=== PATIENT | female | born 1990 ===

== ENCOUNTER 2024-11-23 15:51 | Emergency (ER) | payer BC, SELFPAY ==
[2024-11-23] VITALS (12 sets, daily range): BP systolic 104; BP diastolic 62; PULSE 64–85; RESP 16; TEMP 37.2; O2SAT 98–100; BMI 19.5
--- OUTSIDE RECORDS SUMMARY | 2024-11-23 15:53 | XMS_ITS | Clinical Summary ---
Author Organization [facility] Address [address] [place] [address] Care Team Providers Care Compliance Vice President Name Role Phone Unavailable Primary Care Provider Unavailabl e Source Comments PLEASE NOTE, if this patient is a minor, it may be UNLAWFUL to discuss sensitive information that is contained in these records (such as FAMILY PLANNING, MENTAL HEALTH or SUBSTANCE ABUSE) with the minor patient's parent or other person without the patient's specific authorization.[facility] Allergies Active Allergy Reactions Criticality Noted Date Comments Paroxetine Hcl Anxiety,Other (See Comments) anxiety Medications No known medications Active Problems No known active problems Social History Tobacco Use Types Packs/Day Years Used Date Smoking Tobacco: Never Assessed Social Connections Answer Date Recorded Social Connections and Isolation 0 05/23/2021 Financial Resource Strain Answer Date R ecorded Financial Resource Strain 0 2020 Stress Answer Date Recorded Stress 0 05/23/2021 Physical Activity Answer Date Recorded Physical Activity 0 05/23/2021 Food Insecurity Answer Date Recorded Food 0 05/23/2021 Transportation Needs Answer Date Record ed Transportation 0 05/23/2021 Housing Stability Answer Date Recorded Housing 0 05/23/2021 Safety and Environment Answer Date Edenilson rded Safety 0 05/23/2021 Utilities Answer Date Recorded Utilities 0 05/23/2021 Employment Answer Date Recorded Employment 0 05/23/2021 Comments Unknown Sex and Gender Information Value Date Recorded Sex Assigned at Female 05/19/2021 11:04 AM PDT Legal Sex Female 11:02 AM PDT Gender Identity Female 05/19/2021 11:04 AM PDT Sexual Orientation Straight 05/19/2021 11 :04 AM PDT Last Filed Vital Signs Vital Sign Reading Time Taken Comments Blood Pressure 118/72 05/23/2021 11:28 AM CDT Pulse 65 05/23/2021 11:28 AM CDT Temperature - - Respiratory Rate - - Oxygen Saturation - - Inhaled Oxygen Concentration - - Weight - - Height - - Body Mass Index - - Plan of Treatment Not on file Insurance [employer] [place] [employer]
--- OUTSIDE RECORDS SUMMARY | 2024-11-23 15:53 | XMS_ITS | Clinical Summary ---
Author Organization [facility] Address [place], [place] [address] Care Team Providers Care Referral Agent Name Role Phone Service, Odalis Beard MD Unavailable [phone] Jessica Jose Unavailable Jameson Allen DO Primary Care Provider [phone] Allergies Active Allergy Reactions Criticality Noted Date Comments Paroxetine Hcl Anxiety 10/12/2016 Medications albuterol HFA 90 mcg/actuation inhaler Inhale 2 Puffs by mouth 4 times daily if needed. 0 7 Active cetirizine (ZYRTEC) 10 mg tablet 4 Active levothyroxine (SYNTHROID) 50 mcg tabletIndication s:Hypothyroidism , unspecified type Take 0.5 Tablets (25 mcg) by mouth before breakfast. 5 Active Levothyroxine (Tirosint) 25 mcg capIndications:H ypothyroidism, unspecified type Take 25 mcg by mouth once daily. 90 Capsule 3 5 Active ferrous sulfate, 65 mg elemental, tablet Take 325 mg by mouth. 11/13/19 25 Discontinu ed(*Patien t states no longer taking) ibuprofen (Motrin IB) 200 mg tabletIndication s:S/P section Take 1-3 Tablets (200-600 mg) by mouth every 6 hours if needed (for uterine cramping). Take with food. 100 Tablet 2 11/13/19 25 Discontinu ed(*Patien t states no longer taking) levothyroxine (SYNTHROID) 50 mcg tablet Take 50 mcg by mouth. 3 11/13/19 Discontinu ed(*Medica tion adjustment ) thyroid, pork, (ARMOUR THYROID) 15 mg tablet Take 15 mg by mouth. 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 Hypothyroidism 04/04/2023 Other specified abnormal immunological findings in serum 03/13/2023 Vitamin D deficiency 03/13/2023 S/P section 05/01/2022 40 weeks gestation of 05/01/2022 Diastasis recti 02/03/2022 Overview (11/13/2024): Reviewed every mother and recore Chronic post-traumatic stress disorder (PTSD) Overview (11/13/2024): Followed by psychologist No mood medications Ganglion cyst 08/18/2021 Personality disorder 02/04/2021 Anxiety 08/28/2017 Anxiety and depression 05/08/2012 Encounters Date Type Department Care Team Description 11/21/2024 Telephone [facility] [address] [place] [address] Jameson Allen DO Medication Management (Levothyroxine (Tirosint) 25 mcg cap) 11/18/2024 9:00 AM PASSENGER SERVICE REPRESENTATIVE Ancillary Procedure [facility] [address] [place] [address] [address] [place] [address] 11/18/2024 Telephone [facility] [address] [place] [address] Jameson Allen DO Questions (Questions about last visit) 11/18/2024 Travel 11/13/2024 2:30 PM PASSENGER SERVICE REPRESENTATIVE Office Visit [facility] [address] [place] [address] Jameson Allen DO Consult (Stomach pain and inflamed x 2 weeks /); Thyroid Problem (Hypothyroid ); Medication Management (Levothyroxine side effects nausea, weight loss and stomach pain ) 11/13/2024 Travel from Last 3 Months Immunizations Name Administration Dates Next Due Human Papilloma Virus Vaccine 07/21/2008, 008,12/19/2007 Tdap 12/03/2013 Family History Medical History Relation Name Comments Diabetes Father Hypertension Father Psychiatric illness Father depressi on Hypertension Mother Psychiatric illness Mother depressi on/anxiety Heart Disease Other long QT Relation Name Status Comments Father Mother Other Social History Tobacco Use Types Packs/Day Years Used Date Smoking Tobacco: Former Cigarettes 0.5 6 1 11/22/2003 - 09/21/2010 Smokeless Tobacco: Never Tobacco Cessation:Counseling Given: Yes Alcohol Use Standard Drinks/Week Comments No 0 (1 standard drink = 0.6 oz pur e alcohol) PHQ-2 Answer Date Recorded PHQ-2 TOTAL SCORE 2 11/13/2024 Social Connections Answer Date Recorded Do you often feel lonely or isolated from those around you? 4 11/13/2024 Financial Resource Strain Answer Date R ecorded Difficulty of Paying Living Expenses 3 11/13/2024 Difficulty of Paying Living Expenses Not on file 11/13/2024 Food Insecurity Answer Date Recorded Do you worry your food will run out before you are able to buy more? 1 11/13/2024 Transportation Needs Answer Date Record ed Does lack of transportation keep you from medica l appointments? 1 11/13/2024 Does lack of transportation keep you from work, meetings or getting things that you need? 1 11/13/2024 Housing Stability Answer Date Recorded What is your housing situation today? 1 11/13/2024 Utilities Answer Date Recorded Do you have trouble paying f or utilities (for example, heat, electricity, water, phone)? 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 Not on file Not on file Not on file Obstetrics History Para Term AB IAB SAB Ectopic Multiple Livin g Live Births 7 5 5 1 1 1 6 6 Date Outcome GA Total Labor Labor/2nd/3rd Weight Sex Type Anes PTL Sherrie A1 A5 Name Clin 2010 Term 41w 0d F Vag Livin g Complications:None 2010 SAB 7w0 d SPONTA NEOUS Complications:None 2011 Term 39w 0d M Vag N Livin g Complications:None 2012 Term 39w 0d F Vag N Livin g Complications:None 2015 Term 37w 0d F Vag N Livin g Complications:None 2015 Term F Vag-Br eech N Livin g Complications:None 2021 Term 40w 0d 0h 04m 0h 04m 3.33 kg (7 lb 5.5 oz) M C-Sect ion Epidur al Livin g 7 9 ERMA SANON Justi n Carly le, MD Complications:Cord prolapse Delivery Location:Hospital ( [facility] Last Filed Vital Signs Vital Sign Reading Time Taken Comments Blood Pressure 116/76 11/13/2024 2:57 PM PASSENGER SERVICE REPRESENTATIVE Pulse 66 11/13/2024 2:57 PM PASSENGER SERVICE REPRESENTATIVE Temperature 37.2 C (98.9 F) 11/13/2024 2:57 PM PASSENGER SERVICE REPRESENTATIVE Respiratory Rate 18 05/01/2022 7:58 AM CDT Oxygen Saturation 97% 11/13/2024 2:57 PM PASSENGER SERVICE REPRESENTATIVE Inhaled Oxygen Concentration - - Weight 46.7 kg (103 lb) 11/13/2024 2:57 PM PASSENGER SERVICE REPRESENTATIVE Height 152.4 cm (5') 04/28/2022 8:55 AM CDT Body Mass Index 20.12 04/28/2022 8:55 AM CDT Plan of Treatment Upcoming Encounters Date Type Department Care Team (Late st Contact Info) Description 11/27/2024 2:05 PM PASSENGER SERVICE REPRESENTATIVE Office Visit [facility] [address] [place] [address] Jameson Allen DO [address] [place] [address] 12/02/2024 10:00 AM PASSENGER SERVICE REPRESENTATIVE Appointment [facility] [address] [place] [address] 05/12/2025 1:00 PM CDT Telemedicine [facility] [address] [place] [address] Gwen'John Funes MD [address] [place] [address] Health Maintenance Due Date Last Done Comments Hepatitis C screening for age 18-79 2008 BMI (ht and wt on same day) for age 18+ 10/12/2017 10/12/2016 Tetanus booster 12/03/2023 12/03/2013 COVID-19 vaccine series ( season) 2024 Influenza for age 9-49 06/22/2024 Depression screening for age 12+ 11/13/2025 11/13/2024, 10/12/2016 Pap test for age 21-65 09/02/2026 (Verified in Care Everywhere or Patient Record) Tdap Completed 12/03/2013 HIV for age 15-65 Completed 09/21/2021, 10/23/2016 Pneumococcal series for age 6-49 Aged Out No longer eligible based on patient's age to complete this topic Procedures Procedure Name Priority Date/Time Associated Diagnosis Comments US ABDOMEN LIMITED RUQ Routine 9:30 AM PASSENGER SERVICE REPRESENTATIVE Abdominal pain, RUQ (right upper quadrant) TSH WITH REFLEX Routine 11/13/2024 4:33 PM PASSENGER SERVICE REPRESENTATIVE Hypothyroidism, unspecified type CALCIUM IONIZED OUTPT DRAW ONLY Routine 11/13/2024 4:33 PM PASSENGER SERVICE REPRESENTATIVE Hypercalcemia VITAMIN D 25 (DEFICIENCY) Routine 11/13/2024 4:33 PM PASSENGER SERVICE REPRESENTATIVE Hypercalcemia PTH,INTACT Routine 11/13/2024 4:33 PM PASSENGER SERVICE REPRESENTATIVE Hypercalcemia SELENIUM SERUM/PLASMA Routine 11/13/2024 4:33 PM PASSENGER SERVICE REPRESENTATIVE Hypothyroidism, unspecified type THYROPEROXIDASE ANTIBODY Routine 11/13/2024 4:33 PM PASSENGER SERVICE REPRESENTATIVE Hypothyroidism, unspecified type T3,TOTAL Routine 11/13/2024 4:33 PM PASSENGER SERVICE REPRESENTATIVE Hypothyroidism, unspecified type T4,FREE Add On 11/13/2024 12:00 AM PASSENGER SERVICE REPRESENTATIVE Hypothyroidism, unspecified type HIV EXTERNAL Routine 09/21/2021 from Last 3 Months or Most Recently Relevant to Health Maintenance Results * US ABDOMEN LIMITED RUQ (11/18/2024 9:30 AM PASSENGER SERVICE REPRESENTATIVE) Anatomical Region Laterality Modality Abdomen, LIVER Ultrasound 11/18/2024 11:4 7 AM PASSENGER SERVICE REPRESENTATIVE Narrative 11/18/2024 11:47 AM PASSENGER SERVICE REPRESENTATIVE For Patients: As a result of the Cures Act, medical imaging exams and procedure reports are released immediately into your electronic medical record. You may view this report before your referring provider. If you have questions, please contact your health care provider. Indication: Right upper quadrant pain Technique: Right upper quadrant ultrasound utilizing grayscale and color flow techniques Comparison: None Findings: Pancreas: Partially visualized portions are grossly unremarkable. Abdominal aorta: Visualized portions are normal in caliber. IVC: Patent by color flow. Liver: Measures 15 centimeters in length and demonstrates normal echogenicity. No cysts or masses. Gallbladder: Normal. Common bile duct: 4 millimeters. Right kidney: 11 centimeters in length normal cortical echogenicity and cortical thickness. No stones or hydronephrosis. Free fluid: None. Impression: Normal study. Dictated by Jason Cavanaugh MD @ 11/18/2024 11:47:23 AM (Electronically Signed) Procedure Note Jason Cavanaugh MD - 11/18/2024 For Patients: As a result of the Cures Act, medical imagingexams and procedure reports are released immediately into your electronicmedical record. You may view this report before your referring provider.If you have questions, please contact your health care provider. Indication: Right upper quadrant pain Technique: Right upper quadrant ultrasound utilizing grayscale and color flowtechniques Comparison: None Findings: Pancreas: Partially visualized portions are grossly unremarkable. Abdominal aorta: Visualized portions are normal in caliber. IVC: Patent bycolor flow. Liver: Measures 15 centimeters in length and demonstrates normalechogenicity. No cysts or masses. Gallbladder: Normal. Common bile duct: 4 millimeters. Right kidney: 11 centimeters in length normal cortical echogenicity andcortical thickness. No stones or hydronephrosis. Free fluid: None. Impression: Normal study. Dictated by Jason Cavanaugh MD @ 11/18/2024 11:47:23 AM (Electronically Signed) [facility] US Final Result * SELENIUM SERUM/PLASMA (11/13/2024 4:33 PM PASSENGER SERVICE REPRESENTATIVE) SELENIUM TNP mcg/L [facility] Comment: TEST NOT PERFORMED. We were not able to obtain the required specimen for the order. If testing is still indicated, please re-order the test and instruct your patient to return to our Patient Service Center for re-collection. Blood BLOOD SPECIMEN / Unknown 11/13/2024 4:33 PM PASSENGER SERVICE REPRESENTATIVE 11/13/2024 4:34 PM PASSENGER SERVICE REPRESENTATIVE [facility] DO SEND OUTS Final Result [facility] [address] [facility] [address] [place] [address], [facility] [address] [address], [address] [place] [address] * TSH WITH REFLEX (11/13/2024 4:33 PM PASSENGER SERVICE REPRESENTATIVE) TSH W/REFLEX TO FT4 3.28 mIU/L [facility] [employer] amritza Keita Comment: Reference Range > or = 20 Years 0.40-4.50 Ranges First trimester 0.26-2.66 Second trimester 0.55-2.73 Third trimester 0.43-2.91 Blood BLOOD SPECIMEN / Unknown 11/13/2024 4:33 PM PASSENGER SERVICE REPRESENTATIVE 11/13/2024 4:34 PM PASSENGER SERVICE REPRESENTATIVE [facility] DO CHEMISTRY Final Result [facility] [address] [place] [address], [facility] [address] [place] [address] * CALCIUM IONIZED OUTPT DRAW ONLY (11/13/2024 4:33 PM PASSENGER SERVICE REPRESENTATIVE) CALCIUM, IONIZED 5.1 4.7 - 5.5 mg/dL [employer]Kong maritza Keita Blood BLOOD SPECIMEN / Unknown 11/13/2024 4:33 PM PASSENGER SERVICE REPRESENTATIVE 11/13/2024 4:34 PM PASSENGER SERVICE REPRESENTATIVE [facility] DO CHEMISTRY Final Result Performing Organization Address [facility]/ZIP Co de Phone Number [facility] [address] [address], [facility] [employer] [employer] [address] [place] [phone] * VITAMIN D 25 (DEFICIENCY) (11/13/2024 4:33 PM PASSENGER SERVICE REPRESENTATIVE) Pathologist [facility] VITAMIN D,25-OH,TOTAL,IA 35 30 - 100 ng/mL [employer]Nae garcia Bossman Comment: Vitamin D Status 25-OH Vitamin D: Deficiency: <20 ng/mL Insufficiency: 20 - 29 ng/mL Optimal: > or = 30 ng/mL For 25-OH Vitamin D testing on patients on D2-supplementation and patients for whom quantitation of D2 and D3 fractions is required, the Quest[facility]ure[facility](TM) 25-OH VIT D, (D2,D3), LC/MS/MS is recommended: order code [id number] (patients >2yrs). See Note 1 Note 1 For additional information, please refer to http://education.Trip4real/faq/DWV108 (This link is being provided for informational/ educational purposes only.) Blood BLOOD SPECIMEN / Unknown 11/13/2024 4:33 PM PASSENGER SERVICE REPRESENTATIVE 11/13/2024 4:34 PM PASSENGER SERVICE REPRESENTATIVE Jameson Allen DO SEND OUTS Final Result Performing Organization Address City/[facility]/ZIP Co de Phone Number [facility] [address] [place] [address], [place] [phone] [facility] [address] [address] * (ABNORMAL) THYROPEROXIDASE ANTIBODY (11/13/2024 4:33 PM PASSENGER SERVICE REPRESENTATIVE) Pathologist [facility] THYROID PEROXIDASE ANTIBODIES 161(H) <9 IU/mL [facility] Blood BLOOD SPECIMEN / Unknown 11/13/2024 4:33 PM PASSENGER SERVICE REPRESENTATIVE 11/13/2024 4:34 PM PASSENGER SERVICE REPRESENTATIVE Jameson Allen DO SEND OUTS Final Result [facility] [address] [place] [address], [place] [phone] [facility] [address] [place] [address] * T3,TOTAL (11/13/2024 4:33 PM PASSENGER SERVICE REPRESENTATIVE) Pathologist [facility] T3, TOTAL 82 76 - 181 ng/dL [employer]Ha Keita Blood BLOOD SPECIMEN / Unknown 11/13/2024 4:33 PM PASSENGER SERVICE REPRESENTATIVE 11/13/2024 4:34 PM PASSENGER SERVICE REPRESENTATIVE Jameson Allen DO CHEMISTRY Final Result Performing Organization Address City/[facility]/ZIP Co de Phone Number [facility] [employer] [facility] [address] [place] [address], [place] [phone] [facility] [address] [place] [address] * PTH,INTACT (11/13/2024 4:33 PM PASSENGER SERVICE REPRESENTATIVE) Pathologist [facility] PARATHYROID HORMONE, INTACT 46 16 - 77 pg/mL [employer]Devendra Keita Comment: Interpretive Guide Intact PTH Calcium ------- Normal Parathyroid Normal Normal Hypoparathyroidism Low or Low Normal Low Hyperparathyroidism Primary Normal or High High Secondary High Normal or Low Tertiary High High Non-Parathyroid Hypercalcemia Low or Low Normal High CALCIUM 9.8 8.6 - 10.2 mg/dL [facility] Blood BLOOD SPECIMEN / Unknown 11/13/2024 4:33 PM PASSENGER SERVICE REPRESENTATIVE 11/13/2024 4:34 PM PASSENGER SERVICE REPRESENTATIVE us Adei Phillipqra DO SEND OUTS Final Result [facility] [address] [place] [address], [place] [phone] [facility] [address] [place] [address] * T4,FREE (11/13/2024 12:00 AM PASSENGER SERVICE REPRESENTATIVE) T4, FREE 1.4 0.8 - 1.8 ng/dL [facility] Blood BLOOD SPECIMEN / Unknown 11/13/2024 11/14/2024 11:30 AM PASSENGER SERVICE REPRESENTATIVE us Adei Tiffany DO CHEMISTRY Final Result Performing Organization Address [facility]/ZIP Co de Phone Number [facility] [address] [place] [address], [place] [phone] [facility] [address] [place] [address] * HIV EXTERNAL (09/21/2021) EXTERNAL HIV Negative [facility] Blood BLOOD SPECIMEN / Unknown us Haresh Piper MD LABORATORY Final Re sult [facility] [address] [place] [address], [place] from Last 3 Months or Most Recently Relevant to Health Maintenance Insurance [employer] [place] Advance Directives * Full Code (Latest Code Status on File) Date Activated Date Inactivated Comments 04/28/2022 9:01 AM 05/01/2022 2:43 PM Question Answer Comments Code Status Discussion: Reviewed Preferences Care Teams Referral Agent Relationship Specialty Start Date End Date Jameson Allen DO [address] [place] [address] PCP - General Family Practice 11/21/24 Service, Odalis Beard MD [address] [address] Psychiatry 05/27/12 Jessica Jose [address] [place], [place] [id number] Health Related Social Needs Care Guide 11/20/24
--- NOTE | 2024-11-23 16:18 | ED.ARRPALP ---
HPI - Arrhythmia/Palpitations General Chief Complaint: Arrhythmia/Palpitations Stated Complaint: Heart arrhythmia Time Seen by Provider: 11/23/24 15:53 History of Present Illness HPI narrative: This 34-year-old female comes in reporting palpitations and tingling sensation. She states that she has lots of anxiety. She was seen a couple days ago in a different emergency department with similar complaints. She does not report any chest pain, lightheadedness, shortness of breath, nausea, vomiting, or diaphoresis. She does not have any exercise intolerance. Related Data Home Medications ?Medication ?Instructions ?Recorded ?Confirmed albuterol sulfate 90 mcg/actuation inhalation 11/23/24 aerosol inhaler (Ventolin HFA) levothyroxine 50 mcg tablet 25 mcg DAILY 11/23/24 Allergies Allergy/AdvReac Type Severity Reaction Status Date / Time paroxetine (From Paxil) AdvReac Intermediate Anxiety Verified 11/23/24 16:08 Review of Systems Status of ROS: Reports: 10 or more systems reviewed and unremarkable except as noted in History and below Narrative: Constitutional: No fevers, no weight gain or loss. Eyes: No discharge. No vision changes. HENT: No congestion, no sore throat, no ear pain. Cardiovascular: No chest pain. She has palpitations. Respiratory: No shortness of breath, no wheezes, no cough. Gastrointestinal: No abdominal pain, no vomiting, no diarrhea. Genitourinary: No dysuria, no hematuria. Musculoskeletal: Normal range of motion. Skin: No rashes, no pruritis. Neurological: No dizziness, weakness, sensory change, speech change. Endo/Heme/Allergies: No bruising or bleeding. No polydipsia. Pysch: no suicidality, no insomnia. She reports lots of anxiety. All other systems reviewed and are negative. [facility] Social History Smoking Status: Never smoker How often do you have a drink containing alcohol: never AUDIT-C Alcohol total score: 0 Non-prescribed substance use: denies use Exam Narrative: Exam Narrative: Constitutional: Well-developed, well-nourished, no acute distress. HEENT: Normocephalic, atraumatic. Neck: Normal range of motion. Nontender. Supple. Heart: Regular. No murmurs. Normal rate. Intact distal pulses. Lungs: Clear to auscultation. No chest discomfort. No wheezes, rhonchi, or rales. Abdomen: Normal bowel sounds. Nontender. No rebound tenderness. Genitalia: Deferred. Back: No midline tenderness. Normal range of motion. Extremities: Normal range of motion. No injury. Skin: Intact. No rash. Warm. No erythema or pallor. Neurologic: No altered sensation. No weakness. Alert and oriented. Psychiatric: No suicidality. No insomnia. She appears anxious about her health. Nursing notes and vitals signs are reviewed. Const: Vital Signs, click to edit/add: Vital Signs - 24 hr 11/23/24 16:11 11/23/24 16:14 11/23/24 16:15 Temperature 98.9 F Pulse Rate 85 78 Pulse Rate [Pulse Oximeter] 75 Respiratory Rate 16 Blood Pressure Blood Pressure [Ri ght Upper Arm] 104/62 Pulse Oximetry 99 100 100 Oxygen Delivery Me thod Room Air 11/23/24 16:21 11/23/24 16:30 11/23/24 16:45 Temperature Pulse Rate 75 84 65 Pulse Rate [Pulse Oximeter] Respiratory Rate Blood Pressure 104/62 Blood Pressure [Ri ght Upper Arm] Pulse Oximetry 99 100 98 Oxygen Delivery Me thod 11/23/24 17:00 11/23/24 17:15 11/23/24 18:13 Temperature Pulse Rate 65 64 68 Pulse Rate [Pulse Oximeter] Respiratory Rate Blood Pressure Blood Pressure [Ri ght Upper Arm] Pulse Oximetry 100 100 100 Oxygen Delivery Me thod 11/23/24 18:15 11/23/24 18:30 Temperature Pulse Rate 68 79 Pulse Rate [Pulse Oximeter] Respiratory Rate Blood Pressure Blood Pressure [Ri ght Upper Arm] Pulse Oximetry 100 100 Oxygen Delivery Me thod Course Vital Signs Vital signs: Initial Vital Signs Temperature 98.9 F 11/23/24 16:11 Temperature Source Temporal Artery Scan 11/23/24 16:11 Pulse Rate 75 11/23/24 16:11 Respiratory Rate 16 11/23/24 16:11 Blood Pressure 104/62 11/23/24 16:11 Blood Pressure Mean 76 11/23/24 16:11 Blood Pressure Position High-Fowlers 11/23/24 16:11 Pulse Oximetry 99 11/23/24 16:11 Oxygen Delivery Method Room Air 11/23/24 16:11 Vital Signs Temperature 98.9 F 11/23/24 16:11 Pulse Rate 75 11/23/24 16:11 Respiratory Rate 16 11/23/24 16:11 Blood Pressure 104/62 11/23/24 16:11 Pulse Oximetry 99 11/23/24 16:11 Oxygen Delivery Method Room Air 11/23/24 16:11 Temperature 98.9 F 11/23/24 16:11 Pulse Rate 79 11/23/24 18:30 Respiratory Rate 16 11/23/24 16:11 Blood Pressure 104/62 11/23/24 16:21 Pulse Oximetry 100 11/23/24 18:30 Oxygen Delivery Method Room Air 11/23/24 16:11 MDM - Arrhythmia/Palpitations MDM Narrative Medical decision making narrative: This patient is concerned about palpitations and has other questions about potassium and selenium levels as she has a fair amount of anxiety about her health. EKG shows normal sinus rhythm. While she was on the heart monitor also there were no premature beats. Her palpitations do sound like premature ventricular contractions. I did use bedside ultrasound to look at her heart and this was reassuring to her. Is also labs are acquired and these returned with normal results. She got very concerned that her potassium is very slightly low at 3.4. She said she had a previous reading a few days ago that was similar to this. I did administer 1 tablet of 20 mEq of potassium chloride. I gave reassurance is about all these lab results. She is okay to be discharged home. I did discuss anxiety treatments and she states she has taken various medicines in the past to attempt to help with this but she did not tolerate the adverse effects. Lab Data Labs: Lab Results 11/23/24 11/23/24 Range/Units 16:39 16:59 WBC 5.69 (4.50-11.00) K/uL RBC 4.11 (4.00-5.20) m/uL Hgb 12.0 (12.0-16.0) gm/dL Hct 36.0 (33.0-51.0) % MCV 88 (80-100) fL MCH 29 (26-34) pg MCHC 33 (32-36) gm/dL RDW Coeff of Wellington 13.3 (11.5-15.5) % Plt Count 168 (140-440) K/uL Neut % (Auto) 44.6 (42.0-72.0) % Lymph % (Auto) 41.8 (20-44) % Taney % (Auto) 6.2 (0.0-11.0) % Eos % (Auto) 7.0 (0.0-7.0) % Baso % (Auto) 0.4 (0.0-3.0) % Neut # (Auto) 2.54 (1.7-7.0) K/uL Lymph # (Auto) 2.38 (0.90-2.90) K/uL Taney # (Auto) 0.40 (0.00-0.90) K/UL Eos # (Auto) 0.40 (0.00-0.50) K/uL Baso # (Auto) 0.02 (0.00-0.30) K/uL Abs Immat Gran (auto) 0.00 (0.00-0.30) K/uL Imm/Tot Granulo (auto) 0.0 % Sodium 138 (135-149) mmol/L Potassium 3.4 L (3.6-5.1) mmol/L Chloride 105 (96-114) mmol/L Carbon Dioxide 24 (20-32) mmol/L Anion Gap 9 (7-15) mEq/L BUN 8 (5-24) mg/dL Creatinine 0.5 (0.5-1.5) mg/dL Estimated Creat Clear 113.52 Estimated GFR 126 ml/min Glucose 73 (60-115) mg/dL Calcium 9.6 (8.4-10.6) mg/dL Magnesium 1.9 (1.5-2.6) mg/dL POC Troponin I 0.00 L (0.01-0.04) ng/ml ECG Data Attestation: I personally reviewed and interpreted this ECG as follows: Interpretation: Normal sinus rhythm. Rate is 77 beats per minute. There are no ST or T-wave abnormalities. Discharge Plan Discharge Clinical Impression: Anxiety Patient Disposition: Home, Self-Care Condition: Stable Additional Instructions: Continue current plans. Follow up with primary MD for ongoing management and treatment. Return if worsening. Prescriptions: No Action levothyroxine 50 mcg tablet 25 mcg DAILY albuterol sulfate [Ventolin HFA] 90 mcg/actuation HFA aerosol inhaler INHALATION Patient Comments: [NO ORIGINAL SIG] Follow Up/Referrals: Provider,Not a Local [Primary Care Provider] - Stand Alone Forms: [facility] Info Instructions Procedures Ultrasound Cardiac exam #1: Anatomical areas examined: parasternal long and parasternal short Indications: other Exam type: limited transthoracic echocardiogram Impression: negative exam
[2024-11-23 17:18] LABS: Basophils Absolute Auto 0.02 K/uL (0.00-0.30); Basophils Percent Auto 0.4 % (0.0-3.0); Lymphocytes Absolute Auto 2.38 K/uL (0.90-2.90); Lymphocytes Percent Auto 41.8 % (20-44); Mean Corpuscular HGB Conc 33 gm/dL (32-36); Mean Corpuscular Hemoglobin 29 pg (26-34); Mean Corpuscular Volume 88 fL (80-100); Monocytes Percent Auto 6.2 % (0.0-11.0); Neutrophils Absolute Auto 2.54 K/uL (1.7-7.0); Neutrophils Percent Auto 44.6 % (42.0-72.0); Platelet Count* 168 K/uL (140-440); RDW Coefficient of Variation % 13.3 % (11.5-15.5); Red Blood Count 4.11 m/uL (4.00-5.20); White Blood Count* 5.69 K/uL (4.50-11.00)
[2024-11-23 17:22] LABS: Slide Review Reflex No
[2024-11-23 17:31] LABS: Chloride* 105 mmol/L (96-114); Potassium* 3.4 mmol/L (3.6-5.1); Sodium* 138 mmol/L (135-149)
[2024-11-23 17:34] LABS: Anion Gap 9 mEq/L (7-15); Blood Urea Nitrogen* 8 mg/dL (5-24); Carbon Dioxide* 24 mmol/L (20-32); Creatinine* 0.5 mg/dL (0.5-1.5); Est. Creatinine Clearance* 113.52; Estimated Glomerular Filt Rate 126 ml/min; Glucose* 73 mg/dL (60-115)
[2024-11-23 17:35] LABS: Calcium* 9.6 mg/dL (8.4-10.6); Magnesium* 1.9 mg/dL (1.5-2.6)
--- OUTSIDE RECORDS SUMMARY | 2024-11-23 18:09 | XMS_ITS | Clinical Summary ---
Author Organization [facility] Address [place], [place] [address] Care Team Providers Care Resident Care Supervisor Name Role Phone Service, Odalis Beard MD Unavailable [phone] Jessica Jose Unavailable Jameson Allen DO Primary Care Provider [phone] Allergies Active Allergy Reactions Criticality Noted Date [...] Type Department Care Team Description 11/21/2024 Telephone [facility] [address] [place] [address] Jameson Allen DO Medication Management (Levothyroxine (Tirosint) 25 mcg cap) 11/18/2024 9:00 AM DIRECT MAIL CLERK Ancillary Procedure [facility] [address] [place] [address] [address] [place] [address] 11/18/2024 Telephone [facility] [address] [place] [address] Jameson Allen DO Questions (Questions about last visit) 11/18/2024 Travel 11/13/2024 2:30 PM DIRECT MAIL CLERK Office Visit [facility] [address] [place] [address] Jameson Allen DO Consult (Stomach pain and [...] on file Legal Sex Female 6:50 AM DIRECT MAIL CLERK Gender Identity Not on file Sexual Orientation [...] le, MD Complications:Cord prolapse Delivery Location:Hospital ( [facility] Last Filed Vital Signs Vital Sign Reading Time Taken Comments Blood Pressure 116/76 11/13/2024 2:57 PM DIRECT MAIL CLERK Pulse 66 11/13/2024 2:57 PM DIRECT MAIL CLERK Temperature 37.2 C (98.9 F) 11/13/2024 2:57 PM DIRECT MAIL CLERK Respiratory Rate 18 05/01/2022 7:58 AM CDT Oxygen Saturation 97% 11/13/2024 2:57 PM DIRECT MAIL CLERK Inhaled Oxygen Concentration - - Weight 46.7 kg (103 lb) 11/13/2024 2:57 PM DIRECT MAIL CLERK Height 152.4 cm (5') 04/28/2022 8:55 AM CDT Body Mass Index 20.12 04/28/2022 8:55 AM CDT Plan of Treatment Upcoming Encounters Date Type Department Care Team (Late st Contact Info) Description 11/27/2024 2:05 PM DIRECT MAIL CLERK Office Visit [facility] [address] [place] [address] Jameson Allen DO [address] [place] [address] 12/02/2024 10:00 AM DIRECT MAIL CLERK Appointment [facility] [address] [place] [address] 05/12/2025 1:00 PM CDT Telemedicine [facility] [address] [place] [address] Gwen'John Funes MD [address] [place] [address] Health Maintenance Due Date Last Done Comments [...] US ABDOMEN LIMITED RUQ Routine 9:30 AM DIRECT MAIL CLERK Abdominal pain, RUQ (right upper quadrant) TSH WITH REFLEX Routine 11/13/2024 4:33 PM DIRECT MAIL CLERK Hypothyroidism, unspecified type CALCIUM IONIZED OUTPT DRAW ONLY Routine 11/13/2024 4:33 PM DIRECT MAIL CLERK Hypercalcemia VITAMIN D 25 (DEFICIENCY) Routine 11/13/2024 4:33 PM DIRECT MAIL CLERK Hypercalcemia PTH,INTACT Routine 11/13/2024 4:33 PM DIRECT MAIL CLERK Hypercalcemia SELENIUM SERUM/PLASMA Routine 11/13/2024 4:33 PM DIRECT MAIL CLERK Hypothyroidism, unspecified type THYROPEROXIDASE ANTIBODY Routine 11/13/2024 4:33 PM DIRECT MAIL CLERK Hypothyroidism, unspecified type T3,TOTAL Routine 11/13/2024 4:33 PM DIRECT MAIL CLERK Hypothyroidism, unspecified type T4,FREE Add On 11/13/2024 12:00 AM DIRECT MAIL CLERK Hypothyroidism, unspecified type HIV EXTERNAL Routine 09/21/2021 from Last 3 Months or Most Recently Relevant to Health Maintenance Results * US ABDOMEN LIMITED RUQ (11/18/2024 9:30 AM DIRECT MAIL CLERK) Anatomical Region Laterality Modality Abdomen, LIVER Ultrasound 11/18/2024 11:4 7 AM DIRECT MAIL CLERK Narrative 11/18/2024 11:47 AM DIRECT MAIL CLERK For Patients: As a result of the [...] MD @ 11/18/2024 11:47:23 AM (Electronically Signed) [facility] US Final Result * SELENIUM SERUM/PLASMA (11/13/2024 4:33 PM DIRECT MAIL CLERK) SELENIUM TNP mcg/L [facility] Comment: TEST NOT PERFORMED. We were not able to obtain the required specimen for the order. If testing is still indicated, please re-order the test and instruct your patient to return to our Patient Service Center for re-collection. Blood BLOOD SPECIMEN / Unknown 11/13/2024 4:33 PM DIRECT MAIL CLERK 11/13/2024 4:34 PM DIRECT MAIL CLERK [facility] DO SEND OUTS Final Result [facility] [address] [facility] [address] [place] [address], [facility] [address] [address], [address] [place] [address] * TSH WITH REFLEX (11/13/2024 4:33 PM DIRECT MAIL CLERK) TSH W/REFLEX TO FT4 3.28 mIU/L [facility] Comment: Reference Range > or = 20 Years 0.40-4.50 Ranges First trimester 0.26-2.66 Second trimester 0.55-2.73 Third trimester 0.43-2.91 Blood BLOOD SPECIMEN / Unknown 11/13/2024 4:33 PM DIRECT MAIL CLERK 11/13/2024 4:34 PM DIRECT MAIL CLERK [facility] DO CHEMISTRY Final Result [facility] [address] [place] [address], [facility] [address] [place] [address] * CALCIUM IONIZED OUTPT DRAW ONLY (11/13/2024 4:33 PM DIRECT MAIL CLERK) CALCIUM, IONIZED 5.1 4.7 - 5.5 mg/dL [facility] Keita Blood BLOOD SPECIMEN / Unknown 11/13/2024 4:33 PM DIRECT MAIL CLERK 11/13/2024 4:34 PM DIRECT MAIL CLERK [facility] Ri[facility] DO CHEMISTRY Final Result Performing Organization Address [facility]/ZIP Co de Phone Number [facility] [address] [address], [facility] [address] [place] [phone] * VITAMIN D 25 (DEFICIENCY) (11/13/2024 4:33 PM DIRECT MAIL CLERK) Pathologist [facility] VITAMIN D,25-OH,TOTAL,IA 35 30 - 100 ng/mL [facility] Bossman Comment: Vitamin D Status 25-OH Vitamin D: Deficiency: <20 ng/mL Insufficiency: 20 - 29 ng/mL Optimal: > or = 30 ng/mL For 25-OH Vitamin D testing on patients on D2-supplementation and patients for whom quantitation of D2 and D3 fractions is required, the QuestAssureD(TM) 25-OH VIT D, (D2,D3), LC/MS/MS is recommended: order code [id number] (patients >2yrs). See Note 1 Note 1 For additional information, please refer to http://education.GENWI/faq/YDG615 (This link is being provided for informational/ educational purposes only.) Blood BLOOD SPECIMEN / Unknown 11/13/2024 4:33 PM DIRECT MAIL CLERK 11/13/2024 4:34 PM DIRECT MAIL CLERK Jameson Allen DO SEND OUTS Final Result Performing Organization Address City/[facility]/ZIP Co de Phone Number [facility] [address] [place] [address], [place] [phone] [facility] [address] [address] * (ABNORMAL) THYROPEROXIDASE ANTIBODY (11/13/2024 4:33 PM DIRECT MAIL CLERK) Pathologist [facility] THYROID PEROXIDASE ANTIBODIES 161(H) <9 IU/mL [facility] Blood BLOOD SPECIMEN / Unknown 11/13/2024 4:33 PM DIRECT MAIL CLERK 11/13/2024 4:34 PM DIRECT MAIL CLERK Jameson Allen DO SEND OUTS Final Result [facility] [address] [place] [address], [place] [phone] [facility] [address] [place] [address] * T3,TOTAL (11/13/2024 4:33 PM DIRECT MAIL CLERK) Pathologist [facility] T3, TOTAL 82 76 - 181 ng/dL [facility]Ha Keita Blood BLOOD SPECIMEN / Unknown 11/13/2024 4:33 PM DIRECT MAIL CLERK 11/13/2024 4:34 PM DIRECT MAIL CLERK Jameson Allen DO CHEMISTRY Final Result Performing Organization Address City[facility]/ZIP Co de Phone Number [facility] [employer] [facility] [address] [place] [address], [place] [phone] [facility] [address] [place] [address] * PTH,INTACT (11/13/2024 4:33 PM DIRECT MAIL CLERK) Pathologist [facility] PARATHYROID HORMONE, INTACT 46 16 - 77 pg/mL [facility]ason[facility]Devendra Keita Comment: Interpretive Guide Intact PTH Calcium ------- Normal Parathyroid Normal Normal Hypoparathyroidism Low or Low Normal Low Hyperparathyroidism Primary Normal or High High Secondary High Normal or Low Tertiary High High Non-Parathyroid Hypercalcemia Low or Low Normal High CALCIUM 9.8 8.6 - 10.2 mg/dL [facility] Blood BLOOD SPECIMEN / Unknown 11/13/2024 4:33 PM DIRECT MAIL CLERK 11/13/2024 4:34 PM DIRECT MAIL CLERK us Adei Phillipqra DO SEND OUTS Final Result [facility] [address] [place] [address], [place] [phone] [facility] [address] [place] [address] * T4,FREE (11/13/2024 12:00 AM DIRECT MAIL CLERK) T4, FREE 1.4 0.8 - 1.8 ng/dL [facility] Blood BLOOD SPECIMEN / Unknown 11/13/2024 11/14/2024 11:30 AM DIRECT MAIL CLERK us Adei Tiffany DO CHEMISTRY Final Result Performing Organization Address [facility]/ZIP Co de Phone Number [facility] [address] [place] [address], [place] [phone] [facility] [address] [place] [address] * HIV EXTERNAL (09/21/2021) EXTERNAL HIV Negative [facility] Blood BLOOD SPECIMEN / Unknown us Haresh Ppier MD LABORATORY Final Re sult [facility] [address] [place] [address], [place] from Last 3 Months or Most Recently Relevant to Health Maintenance Insurance [employer] [place] Advance Directives * Full Code (Latest Code Status on File) Date Activated Date Inactivated Comments 04/28/2022 9:01 AM 05/01/2022 2:43 PM Question Answer Comments Code Status Discussion: Reviewed Preferences Care Teams Resident Care Supervisor Relationship Specialty Start Date End Date Jameson Allen DO [address] [place] [address] PCP - General Family Practice 11/21/24 Service, Odalis Beard MD [address] [address] Psychiatry 05/27/12 Jessica Jose [address] [place], [place] [id number] Health Related Social Needs Care Guide 11/20/24
--- OUTSIDE RECORDS SUMMARY | 2024-11-23 18:09 | XMS_ITS | Clinical Summary ---
Author Organization [facility] Address [address] [place] [address] Care Team Providers Care Tower Equipment Repairer Name Role Phone Unavailable Primary Care Provider [...] Treatment Not on file Insurance [employer] [place]
[2024-11-23] MEDS: POTASSIUM CHLORIDE 10 MEQ CAPSULE ER 20 MEQ PO (18:54)
== END 2024-11-23 19:05 | disposition home or self-care (01) ==
PROVIDERS: Emergency Provider Emergency Medicine Emergency Medical Services
DX: F41.9 Anxiety disorder, unspecified (principal)
CPT/HCPCS: 36415; 80048; 83735; 84255; 84484; 85025; 93005; 93308; 99284; A9270